=== PATIENT | female | born 1960 | race Caucasian/White ===

== ENCOUNTER → 2020-03-18 12:42 | Outpatient (CLI) | payer MEDICARE, SELFPAY ==
--- NOTE | ~2020-03-18 | CT_ITS ---
EXAMINATION: CT chest wo con DATE: 03/18/2020 13:07 INDICATION: Solitary pulmonary nodule TECHNIQUE: Computed tomography (CT) of the chest was performed without intravenous contrast. Addition al 3D reconstructions utilizing coronal maximum intensity projection (MIP) were performed. Automated exposure control and iterative reconstruction technique were employed. The dose-length product was 23 9.96 mGy-cm. COMPARISON: None FINDINGS: Small calcified nodule in the right middle lobe consistent with old granulomatous disease. No Interva l change in multiple additional small noncalcified pulmonary nodules scattered throughout both lungs, the largest 2 measuring 5 mm and 4-5 mm in the right lower lobe and the remaining nodule measuring 3 mm or smaller. No new or enlarging pulmonary nodules identified. No pulmonary edema or pleural effus ion. Heart size is normal. No pericardial effusion. Thoracic aorta is normal in caliber. No pathologi jade enlarged thoracic lymphadenopathy. Cholecystectomy clips the gallbladder fossa. Diffuse hepatic steatosis. Mild thoracic spondylosis. IMPRESSION: 1. No interval change in multiple small pulmonary nodules consistent with old granulomatous disease. No new or enlarging pulmonary nodules identified. 2. Diffuse hepatic steatosis. Reviewed, dictated and finalized at location B. IMPRESSION: 1. No interval change in multiple small pulmonary nodules consistent with old g ranulomatous disease. No new or enlarging pulmonary nodules identified. 2. Diffuse hepatic steatosis.
== END ==
PROVIDERS: PCP Family Medicine Adolescent Medicine; Visit Provider Family Medicine Adolescent Medicine
DX: K76.0 Fatty (change of) liver, not elsewhere classified (principal); R91.8 Other nonspecific abnormal finding of lung field
CPT/HCPCS: 71250

== ENCOUNTER → 2020-05-09 11:21 | Outpatient (CLI) | payer MEDICARE, SELFPAY ==
--- NOTE | ~2020-05-09 | MM_ITS ---
EXAMINATION: MM screening [facility] BI w krystyna HISTORY: Screening TECHNIQUE: Craniocaudal and mediolateral oblique 3-D tomosynthesis images were obtained and synthetic 2-D images were generated. CAD analysis was submitted and interpreted. COMPARISON: Comparison to multiple prior studies sequentially, with oldest reviewed study dated 06/17. BREAST PARENCHYMAL COMPOSITION: There are scattered areas of fibroglandular density. FINDINGS: There is no evidence of suspicious mass, calcification, or architectural distortion to sugg est malignancy in either breast. There has been no suspicious interval change. IMPRESSION: 1. No mammographic evidence of malignancy. 2. Recommend routine screening mammography in one year. BI-RADS Category 1: Negative Reviewed, dictated and finalized at location A. H UNIT TREATER
== END ==
PROVIDERS: PCP Family Medicine Adolescent Medicine; Visit Provider Family Medicine Adolescent Medicine
DX: Z12.31 Encounter for screening mammogram for malignant neoplasm of breast (principal)
CPT/HCPCS: 77063; 77067

== ENCOUNTER → 2021-08-17 14:06 | Outpatient (CLI) | payer MEDICARE, SELFPAY ==
--- NOTE | ~2021-08-17 | MM_ITS ---
EXAMINATION: MM screening [facility] w krystyna HISTORY: Screening mammogram, family history of breast cancer in her mother and sister. TECHNIQUE: Craniocaudal and mediolateral oblique 3-D tomosynthesis images were obtained and synthetic 2-D images were generated. CAD analysis was submitted and interpreted. COMPARISON: 05/09/2020, 10/06/2015 BREAST PARENCHYMAL COMPOSITION: There are scattered areas of fibroglandular density. FINDINGS: There is no suspicious mass, calcification, or architectural distortion to suggest malignan cy in either breast. There has been no suspicious interval change. IMPRESSION: 1. No mammographic evidence of malignancy. 2. Recommend routine screening mammography in one year. BI-RADS Category 1: Negative Reviewed, dictated and finalized at location A.
== END ==
PROVIDERS: PCP Family Medicine Adolescent Medicine; Visit Provider Family Medicine Adolescent Medicine
DX: Z12.31 Encounter for screening mammogram for malignant neoplasm of breast (principal)
CPT/HCPCS: 77063; 77067

== ENCOUNTER → 2022-03-12 15:01 | Outpatient (CLI) | payer MEDICARE, SELFPAY ==
--- NOTE | ~2022-03-12 | XR_ITS ---
EXAMINATION: XR chest 2V DATE: 03/12/2022 15:13 INDICATION: Cough, unspecified. TECHNIQUE: Frontal and lateral views of the chest were obtained. COMPARISON: Chest CT 03/18/2020 FINDINGS: The chest demonstrates clear lungs without pneumonia, pleural effusion, or pneumothorax. Th e heart size is normal. IMPRESSION: 1. No acute cardiopulmonary disease. Reviewed, dictated and finalized at location A.
== END ==
PROVIDERS: PCP Family Medicine Adolescent Medicine; Visit Provider Family Medicine Adolescent Medicine
DX: R05.9 Cough, unspecified (principal)
CPT/HCPCS: 71046

== ENCOUNTER → 2023-06-25 14:52 | Outpatient (CLI) | payer MEDICARE, SELFPAY ==
--- NOTE | ~2023-06-25 | XR_ITS ---
EXAMINATION: XR hand RT 2V DATE: 06/25/2023 15:04 INDICATION: Pain at the base of the right thumb TECHNIQUE: Posteroanterior and lateral views of the right hand were obtained. COMPARISON: None. FINDINGS: Alignment is normal. No fracture. Mild osteoarthritis at the distal radioulnar, triscaphe, first carp ometacarpal and multiple interphalangeal joints with distal predominance. No erosions to suggest infl ammatory arthritis. Soft tissues are unremarkable. IMPRESSION: 1. 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 Reviewed, dictated and finalized at location A. TIATOR IMPRESSION: 1. Typical distribution of polyarticular osteoarthritis at the right hand and w rist.
--- NOTE | ~2023-06-25 | XR_ITS ---
EXAMINATION: XR chest 2V 06/25/2023 15:04 INDICATION: Dyspnea PROCEDURE: 2 view chest COMPARISON: Comparison to multiple prior studies sequentially, with oldest reviewed study dated 01/2008. FINDINGS: The lungs are clear. The cardiomediastinal silhouette is within normal limits. There are no pleural effusions. There is no pneumothorax suspected. IMPRESSION: 1: NO ACUTE CARDIOPULMONARY DISEASE. Reviewed, dictated and finalized at location L. HER DUSTER WINDER
== END ==
PROVIDERS: PCP Family Medicine Adolescent Medicine; Visit Provider Family Medicine Adolescent Medicine
DX: R91.8 Other nonspecific abnormal finding of lung field (principal); M19.041 Primary osteoarthritis, right hand; M19.031 Primary osteoarthritis, right wrist
CPT/HCPCS: 71046; 73120

== ENCOUNTER 2025-05-25 12:30 | Outpatient (CLI) | payer MEDICARE, SELFPAY ==
--- NOTE | ~2025-05-25 | US_ITS ---
US thyroid INDICATION: Thyroid nodule TECHNIQUE: Real-time sonographic images of the thyroid gland were obtained. COMPARISON: No prior studies for comparison. FINDINGS: The right thyroid lobe measures 5 x 2.2 x 1.6 cm. The left thyroid lobe measures 5.2 x 2.3 x 2.4 cm largest mass in the right lobe is mixed solid and cystic measuring 2.4 cm which is hypoechoic, wider than tall, smoothly marginated without echogenic foci, TR 3. Largest mass in the left lobe is mixed solid and cystic, hypoechoic, wider than tall, smoothly marginated measuring up to 2.7 cm, TR 3. There is normal echotexture and echogenicity throughout the thyroid gland. No discrete nodules identified. Normal vascular flow is present. IMPRESSION: 1. Complex mixed solid and cystic bilateral thyroid masses which meet sonographic criteria for fine needle aspiration. Reviewed, dictated and finalized at location O. WIRE PHOTO OPERATOR IMPRESSION: 1. Complex mixed solid and cystic bilateral thyroid masses which meet sonograp hic criteria for fine needle aspiration.
== END 2025-05-25 12:31 | disposition home or self-care (01) ==
LOC: MICIMG 12:31
PROVIDERS: PCP Nurse Practitioner Family; Visit Provider Nurse Practitioner Family
DX: E04.9 Nontoxic goiter, unspecified (principal)
CPT/HCPCS: 76536

== ENCOUNTER 2025-06-02 10:32 | Outpatient (CLI) | payer MEDICARE, SELFPAY ==
--- NOTE | ~2025-06-02 | MM_ITS ---
EXAMINATION: MM screening [facility] BI w krystyna HISTORY: Z12.31 - Encounter for screening mammogram for malignant ... TECHNIQUE: Craniocaudal and mediolateral oblique 3-D tomosynthesis images were obtained and synthetic 2-D images were generated. CAD analysis was submitted and interpreted. COMPARISON: 2021 and 2019. BREAST PARENCHYMAL COMPOSITION: The breast tissue is heterogeneously dense, which may obscure small masses. FINDINGS: No suspicious masses are seen. There are no suspicious calcifications. No unexplained architectural distortion is seen. There are no skin or nipple abnormalities identified. There is no adenopathy seen on the images submitted. IMPRESSION: No mammographic evidence to suggest malignancy is seen. The patient may return to screening mammography as per ACR guidelines. BI-RADS 1 - Negative. Reviewed, dictated and finalized at location C. PATIAL ANALYST
== END 2025-06-02 10:33 | disposition home or self-care (01) ==
LOC: MICIMG 10:32
PROVIDERS: PCP Nurse Practitioner Family; Visit Provider Nurse Practitioner Family
DX: Z12.31 Encounter for screening mammogram for malignant neoplasm of breast (principal)
CPT/HCPCS: 77063; 77067